=== PATIENT | female | born 2000 | race Caucasian/White ===

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

== ENCOUNTER 2019-01-05 14:15 | Emergency (ER) | payer SELFPAY ==
[2019-01-05 14:23] VITALS: BP 132/88
[2019-01-05] MEDS ORDERED: predniSONE TAB* 20 MG PO ONE (14:45)
--- NOTE | 2019-01-05 14:47 | ED ---
Skin Complaint - HPI Summary HPI Summary: Patient complains of rash to all 4 extremities, chest and back 2 weeks. Patient has tried Benadryl by mouth and cortisone cream with no relief. Rash is pruritic. Denies new soaps, detergents, creams, lotions. Noone else in the house has same rash. No prior history of same rash. Denies fever, cough, sore throat, CP, SOB, N/SV abdominal pain, change in urine, change in BM. Patient denies medical history. - History of Current Complaint Chief Complaint: EDRashSkinAbscess Time Seen by Provider: 01/05/19 14:37 Stated Complaint: HIVES FOR 2 WKS PER PT Hx Obtained From: Patient Onset/Duration: Started Weeks Ago Skin Exposure Onset/Duration: Weeks Ago Timing: Constant Onset Severity: Mild Current Severity: Mild Pain Intensity: 2 Pain Scale Used: 0-10 Numeric Skin Location: Diffuse Character: Pruritus, Redness, Raised Aggravating Symptom(s): Nothing Alleviating Symptom(s): Nothing Associated Signs & Symptoms: Rash - Allergy/Home Medications Allergies/Adverse Reactions: Allergies Allergy/AdvReac Type Severity Reaction Status Date / Time No Known Allergies Allergy Verified 12/23/18 20:32 PMH/Surg Hx/FS Hx/Imm Hx Endocrine/Hematology History: Denies: Hx Anticoagulant Therapy Respiratory History: Denies: Hx Asthma History: Denies: Hx Dialysis Sensory History: Denies: Hx Legally Blind Opthamlomology History: Denies: Hx Eye Prosthesis EENT History: Denies: Hx Deafness Neurological History: Denies: Hx Dementia Psychiatric History: Denies: Hx of Violent Episodes Against Others Infectious Disease History: No Infectious Disease History: Denies: Traveled Outside the [place] in Last 30 Days - Family History Known Family History: Positive: Non-Contributory - Social History Alcohol Use: Rare Substance Use Type: Reports: Marijuana Smoking Status (MU): Light Every Day Tobacco Smoker Review of Systems Constitutional: Negative Eyes: Negative ENT: Negative Cardiovascular: Negative Respiratory: Negative Gastrointestinal: Negative Genitourinary: Negative Musculoskeletal: Negative Positive: Rash Neurological: Negative Psychological: Normal All Other Systems Reviewed And Are Negative: Yes Physical Exam - Summary Physical Exam Summary: Diffuse isolated raised bumps on all 4 extremities, chest, abdomen and back. No oral lesions. No lesions on face. Rash resembles bites, however without central puncture mai. Triage Information Reviewed: Yes Vital Signs On Initial Exam: Initial Vitals Temp Pulse Resp BP Pulse Ox 98.7 F 119 20 132/88 98 01/05/19 14:15 01/05/19 14:15 01/05/19 14:15 01/05/19 14:15 01/05/19 14:15 Vital Signs Reviewed: Yes Appearance: Positive: Well-Appearing Skin: Positive: Warm Head/Face: Positive: Normal Head/Face Inspection Eyes: Positive: Normal ENT: Positive: Normal ENT inspection Neck: Positive: Supple Respiratory/Lung Sounds: Positive: Clear to Auscultation Cardiovascular: Positive: Normal Abdomen Description: Positive: Nontender Musculoskeletal: Positive: Normal Neurological: Positive: Normal Psychiatric: Positive: Normal AVPU Assessment: Alert - Faustino Coma Scale Best Eye Response: 4 - Spontaneous Best Motor Response: 6 - Obeys Commands Best Verbal Response: 5 - Oriented Coma Scale Total: 15 Diagnostics - Vital Signs Vital Signs Temp Pulse Resp BP Pulse Ox 01/05/19 14:15 98.7 F 119 20 132/88 98 - Laboratory Lab Statement: Any lab studies that have been ordered have been reviewed, and results considered in the medical decision making process. Course/Dx - Course Course Of Treatment: Patient complains of rash to all 4 extremities, chest and back 2 weeks. Patient has tried Benadryl by mouth and cortisone cream with no relief. Rash is pruritic. Denies new soaps, detergents, creams, lotions. Noone else in the house has same rash. No prior history of same rash. Denies fever, cough, sore throat, CP, SOB, N/SV abdominal pain, change in urine, change in BM. Patient denies medical history. Vital signs within normal limits. Rx for prednisone. - Diagnoses Provider Diagnoses: Rash Discharge ED - Sign-Out/Discharge Documenting (check all that apply): Patient Departure Patient Received Moderate/Deep Sedation with Procedure: No - Discharge Plan Condition: Stable Disposition: HOME Prescriptions: predniSONE TAB* [Deltasone 20 MG TAB*] 40 mg PO DAILY 5 Days #10 tab Patient Education Materials: Urticaria (ED), Acute Rash (ED) Referrals: No Primary Care Phys,NOPCP [Primary Care Provider] - Shanon Lopez MD [Medical Doctor] - Additional Instructions: Take prednisone as directed. If symptoms do not resolve in one week with prednisone, follow-up with microfilm technician Dr. Lopez for further evaluation. - Billing Disposition and Condition Condition: STABLE Disposition: Home
== END 2019-01-05 15:09 | disposition home or self-care (01) ==
LOC: ED 14:15
DX: R21 Rash and other nonspecific skin eruption (principal); Z72.0 Tobacco use
CPT/HCPCS: 99282; J7512